=== PATIENT | female | born 1960 | race Caucasian/White ===

== ENCOUNTER 2017-11-23 14:25 | Emergency (ER) | payer MEDICAID ==
[~2017-11-23] VITALS: Ht 162.6 cm; Wt 84.0 kg
[~2017-11-23 14:25] MED LIST: OMEP20CA5 PO; OXYC15TA PO; SLEEP AID OTC; SOMA350T PO; XANA2TAB2 PO
[2017-11-23 14:29] VITALS: BP 146/76; PULSE 75; RESP 18; TEMP 97.8; O2SAT 98
[2017-11-23] MEDS ORDERED: SODIUM CHLORIDE 0.9% FLUSH 10 ML FLUSH IVF PRN (14:45)
[2017-11-23 14:46] VITALS: PULSE 97; RESP 20; O2SAT 98
[2017-11-23] MEDS ORDERED: MELO15TA20 PO (14:51)
[2017-11-23] MEDS ORDERED: OXYC-395 PO (14:51)
[2017-11-23] MEDS ORDERED: OMEP40CA2 PO (14:51)
[2017-11-23] MEDS ORDERED: CYCL10TA PO (14:51)
[2017-11-23] MEDS ORDERED: ALPR1TAB3 PO (14:51)
[2017-11-23] MEDS ORDERED: TRAZ1TAB14 PO (14:51)
[2017-11-23] MEDS ORDERED: GABA100C4 PO (14:51)
--- NOTE | 2017-11-23 14:51 | PD ---
HPI Chief Complaint: Chest Pain Time Seen by Provider: 14:48 Travel History International Travel<30 days: No Contact w/Intl Traveler<30days: No Traveled to known affect area: No History of Present Illness HPI 57-year-old female patient with history of bipolar disorder, PTSD, hypertension , presents to the ER today for several days history of intermittent chest tightness in the left chest with radiation down the left arm, shortness of breath. She states that she had an episode but states that she is currently chest pain-free and is now settling down. She denies any fevers, coughing, vomiting, or other symptoms. She has not noticed exacerbating or relieving factors. Modifying Factors: None Associated Signs & Symptoms: Chest discomfort with shortness of breath, nausea Risk Factors: None PFSH Past Medical History Asthma: Yes Bipolar Disorder: Yes Heart Rhythm Problems: No Cardiac Catheterization: No Cardiovascular Problems: Yes High Cholesterol: No Congestive Heart Failure: No Diabetes: No Diminished Hearing: No GERD: Yes Hypertension: No Musculoskeletal: Yes (HERNIATED AND BULGING DISKS; CHRONIC BACK PAIN) Myocardial Infarction: No Tetanus Vaccination: Unknown Influenza Vaccination: Yes Tubal Ligation: Yes Past Surgical History Coronary Artery Bypass Graft: No Tonsillectomy: Yes Social History Alcohol Use: Yes (RARELY) Tobacco Use: Yes (1/2 PPD ) Substance Use: No Allergies-Medications (Allergen,Severity, Reaction): Coded Allergies: aspirin (Unverified Allergy, Mild, 11/23/17) Reported Meds & Prescriptions Reported Meds & Active Scripts Active Reported Meloxicam 15 Mg Tab 15 Mg PO DAILY Oxycodone (Oxycodone HCl) 10 Mg Tab 10 Mg PO TID PRN Gabapentin 100 Mg Cap 100 Mg PO TID Alprazolam 1 Mg Tab 1 Mg PO Q6H PRN Trazodone (Trazodone HCl) 150 Mg Tablet 150 Mg PO HS Flexeril (Cyclobenzaprine HCl) 10 Mg Tab 10 Mg PO TID Omeprazole 40 Mg Cap 40 Mg PO DAILY Review of Systems Except as stated in HPI: all other systems reviewed are Neg Physical Exam Narrative GENERAL: Well-developed middle age white female patient who appears to be an mild distress, tearful on exam, states she is stressed out. Awake and oriented 3. SKIN: Focused skin assessment warm/dry. HEAD: Atraumatic. Normocephalic. EYES: Pupils equal and round. No scleral icterus. No injection or drainage. ENT: No nasal bleeding or discharge. Mucous membranes pink and moist. NECK: Trachea midline. No JVD. CARDIOVASCULAR: Regular rate and rhythm. No murmur appreciated. Pulses are present and equal bilaterally. RESPIRATORY: No accessory muscle use. Clear to auscultation. Breath sounds equal bilaterally. GASTROINTESTINAL: Abdomen soft, non-tender, nondistended. Hepatic and splenic margins not palpable. MUSCULOSKELETAL: No obvious deformities. No clubbing. No cyanosis. No edema. NEUROLOGICAL: Awake and alert. No obvious cranial nerve deficits. Motor grossly within normal limits. Normal speech. PSYCHIATRIC: Anxious mood and affect; insight and judgment normal. Data Data Last Documented VS Vital Signs Date Time Temp Pulse Resp B/P (MAP) Pulse Ox O2 Delivery O2 Flow Rate FiO2 11/23/17 14:46 97 20 98 Room Air 11/23/17 14:46 2.00 11/23/17 14:29 97.8 Orders Orders Electrocardiogram (11/23/17 14:42) Ckmb (Isoenzyme) Profile (11/23/17 14:42) Complete Blood Count With Diff (11/23/17 14:42) Comprehensive Metabolic Panel (11/23/17 14:42) Magnesium (Mg) (11/23/17 14:42) Prothrombin Time / Inr (Pt) (11/23/17 14:42) Act Partial Throm Time (Ptt) (11/23/17 14:42) Troponin I (11/23/17 14:42) Chest, Single Ap (11/23/17 14:42) Ecg Monitoring (11/23/17 14:42) Bilateral Bp Monitoring (11/23/17 14:42) Iv Access Insert/Monitor (11/23/17 14:42) Oximetry (11/23/17 14:42) Oxygen Administration (11/23/17 14:42) Sodium Chloride 0.9% Flush (Ns Flush) (11/23/17 14:45) B-Type Natriuretic Peptide (11/23/17 14:42) Lorazepam (Ativan) (11/23/17 15:45) Admit Order (Ed Use Only) (11/23/17 16:12) Labs Laboratory Tests Test 11/23/17 15:15 White Blood Count 8.2 TH/MM3 Red Blood Count 4.08 MIL/MM3 Hemoglobin 12.4 GM/DL Hematocrit 37.0 % Mean Corpuscular Volume 90.7 FL Mean Corpuscular Hemoglobin 30.5 PG Mean Corpuscular Hemoglobin Concent 33.6 % Red Cell Distribution Width 13.6 % Platelet Count 262 TH/MM3 Mean Platelet Volume 8.0 FL Neutrophils (%) (Auto) 53.6 % Lymphocytes (%) (Auto) 37.3 % Monocytes (%) (Auto) 6.0 % Eosinophils (%) (Auto) 2.5 % Basophils (%) (Auto) 0.6 % Neutrophils # (Auto) 4.4 TH/MM3 Lymphocytes # (Auto) 3.1 TH/MM3 Monocytes # (Auto) 0.5 TH/MM3 Eosinophils # (Auto) 0.2 TH/MM3 Basophils # (Auto) 0.0 TH/MM3 CBC Comment DIFF FINAL Differential Comment Prothrombin Time 10.7 SEC Prothromb Time International Ratio 1.1 RATIO Activated Partial Thromboplast Time 28.0 SEC Blood Urea Nitrogen 10 MG/DL Creatinine 0.76 MG/DL Random Glucose 89 MG/DL Total Protein 7.3 GM/DL Albumin 4.0 GM/DL Calcium Level 8.6 MG/DL Magnesium Level 1.9 MG/DL Alkaline Phosphatase 90 U/L Aspartate Amino Transf (AST/SGOT) 17 U/L Alanine Aminotransferase (ALT/SGPT) 16 U/L Total Bilirubin 0.3 MG/DL Sodium Level 139 MEQ/L Potassium Level 3.8 MEQ/L Chloride Level 108 MEQ/L Carbon Dioxide Level 23.9 MEQ/L Anion Gap 7 MEQ/L Estimat Glomerular Filtration Rate 78 ML/MIN Total Creatine Kinase 69 U/L Troponin I LESS THAN 0.02 NG/ML B-Type Natriuretic Peptide 27 PG/ML MDM Medical Decision Making Medical Screen Exam Complete: Yes Emergency Medical Condition: Yes Medical Record Reviewed: Yes Interpretation(s) EKG shows normal sinus rhythm at a rate of 85 bpm with no signs of acute ST-T changes. Laboratory Tests Test 11/23/17 15:15 Chloride Level 108 MEQ/L (98-107) Estimat Glomerular Filtration Rate 78 ML/MIN (>89) Troponin I LESS THAN 0.02 NG/ML Last 24 hours Impressions Chest X-Ray 11/23/17 9672 Signed Impressions: Service Date/Time: Thursday, November 23, 2017 14:56 - CONCLUSION: No acute cardiopulmonary disease identified. Sergey Pelletier MD Differential Diagnosis ACS versus dysrhythmias versus anxiety attack Narrative Course EKG, chest x-ray, lab work was unremarkable. Cardiac enzymes are negative. Patient was given a small dose of anti-anxiety medication. At this point, considering her age and risk factors, my plan would be to admit her for further evaluation a chest pain. Diagnosis Primary Impression: Chest pain Admitting Information Admitting Physician Requests: Admit Za Marcial MD Nov 23, 2017 14:51
--- NOTE | 2017-11-23 15:26 | RADRPT ---
EXAM DATE/TIME: 11/23/2017 14:56 [facility] COMPARISON: No previous studies available for comparison. INDICATIONS : Chest pain. MEDICAL HISTORY : Chronic obstructive pulmonary disease. Asthma. SURGICAL HISTORY : None. ENCOUNTER: Initial ACUITY: 1 day PAIN SCORE: 8/10 LOCATION: Bilateral chest FINDINGS: Single AP view of the chest. The lungs are clear. Cardiomediastinal silhouette within normal limits. No evidence of pleural effusion or pneumothorax. CONCLUSION: No acute cardiopulmonary disease identified. Sergey Pelletier MD on November 23, 2017 at 15:24 Board Certified Radiologist. This report was verified electronically.
[2017-11-23 15:32] LABS: AUTOMATED NEUTROPHIL # 4.4 TH/MM3 (1.8-7.7); BASOPHIL % 0.6 % (0.0-2.0); EOSINOPHIL # 0.2 TH/MM3 (0-0.4); EOSINOPHIL % 2.5 % (0.0-4.0); HEMOGLOBIN 12.4 GM/DL (11.6-15.3); LYMPH % 37.3 % (9.0-44.0); LYMPHOCYTE # 3.1 TH/MM3 (1.0-4.8); MEAN CELL VOLUME 90.7 FL (80.0-100.0); MEAN CORPUSCULAR HEMOGLOBIN 30.5 PG (27.0-34.0); MEAN CORPUSCULAR HGB CONC 33.6 % (32.0-36.0); MONOCYTE # 0.5 TH/MM3 (0-0.9); NEUT % 53.6 % (16.0-70.0); PLATELET COUNT 262 TH/MM3 (150-450); RED BLOOD COUNT 4.08 MIL/MM3 (4.00-5.30); RED CELL DISTRIBUTION WIDTH 13.6 % (11.6-17.2); WHITE BLOOD COUNT 8.2 TH/MM3 (4.0-11.0)
[2017-11-23 15:42] LABS: INTERNATIONAL NORMALIZED RATIO 1.1 RATIO; PROTHROMBIN TIME - PATIENT 10.7 SEC (9.8-11.6)
[2017-11-23] MEDS ORDERED: LORazepam 0.5 MG TAB PO ONE (15:45)
[2017-11-23 15:50] LABS: ALT (GPT) 16 U/L (10-53); AST (GOT) 17 U/L (15-37); BICARBONATE 23.9 MEQ/L (21.0-32.0); BLOOD UREA NITROGEN 10 MG/DL (7-18); CALCIUM 8.6 MG/DL (8.5-10.1); CHLORIDE 108 MEQ/L (98-107); CREATININE 0.76 MG/DL (0.50-1.00); GLOMERULAR FILTRATION RATE 78 ML/MIN (>89); GLUCOSE,RANDOM 89 MG/DL (74-106); MAGNESIUM 1.9 MG/DL (1.5-2.5); SODIUM (NA) 139 MEQ/L (136-145)
[2017-11-23 15:54] LABS: ALKALINE PHOSPHATASE 90 U/L (45-117); TOTAL BILIRUBIN ADULT 0.3 MG/DL (0.2-1.0); TOTAL PROTEIN 7.3 GM/DL (6.4-8.2); TROPONIN I LESS THAN 0.02 NG/ML (0.02-0.05)
--- NOTE | 2017-11-23 15:55 | EKG ---
Date Performed: 11/23/2017 Time Performed: 14:42:10 PTAGE: 57 years EKG: Sinus rhythm LOW QRS VOLTAGE IN PRECORDIAL LEADS INFERIOR MYOCARDIAL INFARCTION ABNORMAL ECG NO PREVIOUS TRACING DOCTOR: Ryan Roth Interpretating Date/Time 11/23/2017 15:54:25
== END 2017-11-23 17:00 | disposition left against medical advice (07) ==
LOC: NEPC 14:25 → UNDOADMOB 16:13 → NEDA 16:13
DX: R07.89 Other chest pain (principal); R06.02 Shortness of breath; F17.200 Nicotine dependence, unspecified, uncomplicated; Z79.899 Other long term (current) drug therapy
CPT/HCPCS: 71010; 80053; 82550; 83735; 83880; 84484; 85025; 85610; 85730; 93005; 99285